=== PATIENT | male | born 1980 | race Caucasian/White ===

== ENCOUNTER 2017-01-09 04:44 | Emergency (ER) | payer BC ==
[~2017-01-09] VITALS: Ht 188 cm; Wt 104.2 kg
[2017-01-09] MEDS ORDERED: EYE WASH 120 ML BTL OU ONE (04:55)
[2017-01-09] MEDS ORDERED: FLUORESCEIN (FLUOR-I-STRIPS) 1 MG STRIP OU ONE ×2 (04:55→05:00)
[2017-01-09] MEDS ORDERED: TETRACAINE 0.5% OPHTHALMIC SOLUTION 4 ML BTL OU ONE (04:55)
[2017-01-09] MEDS ORDERED: ED- HYDROcodone/ACETAMINOPHEN 5MG/325MG (NORCO) 6 TABLETS/BTL PO ONE (05:15)
[2017-01-09 05:23] VITALS: BP 139/89
== END 2017-01-09 05:23 | disposition home or self-care (01) ==
LOC: ED 04:50
DX: H16.133 Photokeratitis, bilateral (principal)
CPT/HCPCS: 99283